=== PATIENT | female | born 1975 | race Caucasian/White ===

== ENCOUNTER 2023-03-20 10:30 | Outpatient (RCR) | payer BC, SELFPAY | END 2023-03-20 10:56 | disposition home or self-care (01) | PROVIDERS: PCP Dentist General Practice; Visit Provider Dentist General Practice | DX: M26.609 Unspecified temporomandibular joint disorder, unspecified side (principal); Z51.89 Encounter for other specified aftercare | CPT/HCPCS: 97110; 97140; 97161 ==